=== PATIENT | male | born 1970 ===

== ENCOUNTER 2024-12-19 06:16 | Day surgery (SDC) | payer OTHER, SELFPAY ==
[2024-12-19 09:39] VITALS: BP 155/92
[2024-12-19 10:03] VITALS: BMI 24.0
[2024-12-19 10:37] VITALS: BP 101/71
[2024-12-19 10:45] VITALS: BP 117/77
[2024-12-19 11:00] VITALS: BP 121/79
== END 2024-12-19 11:14 | disposition home or self-care (01) ==
LOC: SDS 06:16
PROVIDERS: ATTENDING PHYSICIAN Internal Medicine
DX: R13.14 Dysphagia, pharyngoesophageal phase (principal); K22.89 Other specified disease of esophagus; K20.0 Eosinophilic esophagitis
CPT/HCPCS: 43249; 43239; 88305; C1726

== ENCOUNTER 2025-03-12 06:08 | Day surgery (SDC) | payer OTHER, SELFPAY ==
[2025-03-12 07:16] VITALS: BMI 23.6
[2025-03-12 07:17] VITALS: BP 133/88
[2025-03-12 08:17] VITALS: BP 100/76
[2025-03-12 08:30] VITALS: BP 115/80
[2025-03-12 08:40] VITALS: BP 111/83
== END 2025-03-12 08:50 | disposition home or self-care (01) ==
LOC: SDS 06:08
PROVIDERS: ATTENDING PHYSICIAN Internal Medicine
DX: K22.89 Other specified disease of esophagus (principal); K22.2 Esophageal obstruction; R13.10 Dysphagia, unspecified
CPT/HCPCS: 43248; 43239; 88305